=== PATIENT | male | born 1995 | race Caucasian/White ===

== ENCOUNTER 2023-07-11 21:22 | Emergency (ER) | payer OTHER, SELFPAY ==
[2023-07-11 21:32] VITALS: BP 140/87; PULSE 95; RESP 18; TEMP 36.9; O2SAT 98; BMI 34.0
--- NOTE | 2023-07-11 22:07 | W.ED.EYEPROB ---
HPI - Eye Problem General: Chief complaint: Eye Problems Stated complaint: red painful eye Time Seen by Provider: 07/11/23 22:04 History of Present Illness: Is a healthy 28-year-old male who presents to the emergency room with left eye pain. He says he was around a cat and he is allergic and he had very itchy eyes. He had been scratching his eyes and they turned red and he thought he saw foreign body in tried to get it out and now he has a white spot over his pupil. On exam initially this looks like a corneal abrasion rather than a foreign body. No vision changes. No pain with eye movement. Review of Systems Narrative: Constitutional symptoms: Negative except as documented in HPI. Skin symptoms: Negative except as documented in HPI. Eye symptoms: Negative except as documented in HPI. ENMT symptoms: Negative except as documented in HPI. Respiratory symptoms: Negative except as documented in HPI. Cardiovascular symptoms: Negative except as documented in HPI. Gastrointestinal symptoms: Negative except as documented in HPI. Genitourinary symptoms: Negative except as documented in HPI. Musculoskeletal symptoms: Negative except as documented in HPI. Neurologic symptoms: Negative except as documented in HPI. Psychiatric symptoms: Negative except as documented in HPI. Endocrine symptoms: Negative except as documented in HPI. Physical Exam Narrative: EXAM NARRATIVE: General: Alert, no acute distress. Skin: warm and dry Head: Normocephalic Neck: Trachea midline Eye: Extraocular movements are intact. Vision grossly normal. He has some scleral injection. What appears to be a corneal abrasion just on regular exam over his iris. Ears, nose, mouth and throat: Oral mucosa moist Respiratory: Respirations are non-labored Musculoskeletal: Normal ROM Neurological: Alert and oriented, No focal neurological deficit observed. Psychiatric: Cooperative, appropriate mood & affect. Course Vital Signs: Vital signs: Vital Signs Temperature 98.4 F 07/11/23 21:32 Pulse Rate 95 07/11/23 21:32 Respiratory Rate 18 07/11/23 21:32 Blood Pressure 140/87 07/11/23 21:32 Pulse Oximetry 98 07/11/23 21:32 Oxygen Delivery Me thod Room Air 07/11/23 21:32 MDM - Eye Problem Medical Decision Making Slit lamp examination of eye. tetracaine applied to the affected eye. once significant analgesia occurred fluorescein dye was applied to the eye Examination under our local eye revealed a corneal abrasion over the medial side of the iris. Doubt this with a 4 x 4 and it is definitely not a foreign body but an abrasion.. I was then irrigated copiously with saline. Polytrim applied to the eye here and a prescription was given Assessment and plan: Corneal abrasion -First dose [place] and first dose of his eyedrops here. - Discharged home - Discussed plan with patient. Answered any questions. - Evaluation and treatment of this problem were appropriate in the emergency setting. No radiology studies performed this visit Discharge Plan Discharge Patient Disposition: Home Clinical Impression: Corneal abrasion Condition: Stable Prescriptions: New hydrocodone-acetaminophen 5-325 mg tablet 1 tab PO Q6H PRN (Reason: pain) Qty: 20 0RF [id number]-IX 3.5-10,000-1 mg/mL-unit/mL-% drops,suspension 4 drp otic (ear) Q6H 10 Days Qty: 10 0RF Discharge Orders: Discharge ED (Routine); Ordered 07/11/23 Ordered By: Louisa Fonseca Discharge Diet: Usual diet Discharge Activity: Increase activity as tolerated Patient Instructions: Corneal Abrasion (ED), Opioid Safety Activity Restrictions/Additional Instructions: Thank you for choosing [facility] for your healthcare needs today. Please realize this is an emergency room and that we are providing you with a medical screening exam and this may not be complete and all inclusive of all the testing and or work up that you may need to determine your ailment or severity of your illness. You have been screened and evaluated and felt safe for discharge. Health conditions do change or evolve sometimes and as such it is important that you follow up with your Primary Doctor to be re checked, 3-5 days is a general good time frame for follow up. You are always welcome to return to the ED for re assessment if your symptoms are worsening or you have new concerns Coding Level of Care Code ED Graduate Teaching Assistant for Adarsh Valentine
[2023-07-11] MEDS: tetracaine 0.5% Op Soln 4 mL Btl 1 DROP EYE-RIGHT (22:10)
[2023-07-11] MEDS: fluorescein 1 mg Strip EYE-RIGHT (22:10)
[2023-07-11] MEDS: HYDROcodone-acetaminophen 10-325 mg Tablet 1 TAB PO (22:38)
[2023-07-11] MEDS: erythromycin Op Oint 1 gm 1 APPLIC EYE-LEFT (22:39)
--- NOTE | 2023-07-11 22:53 | PC.NURSE ---
EDI 10/325MG SENT HOME WITH PT PER DR. MOORE VERBALLY ORDER TO SEND HOME.
== END 2023-07-11 22:54 | disposition home or self-care (01) ==
PROVIDERS: Emergency Provider Emergency Medicine
DX: S05.02XA Injury of conjunctiva and corneal abrasion without foreign body, left eye, initial encounter (principal); X58.XXXA Exposure to other specified factors, initial encounter
CPT/HCPCS: 99283

== ENCOUNTER 2024-07-19 08:12 | Outpatient (CLI) | payer OTHER, SELFPAY ==
--- NOTE | 2024-07-19 08:16 | USR_ITS ---
PROCEDURE INFORMATION: Exam: US Abdomen; Limited Exam date and time: 07/19/2024 8:30 AM Age: 29 years old Clinical indication: Abnormal findings; Abnormal lab test; Elevated liver enzymes TECHNIQUE: Imaging protocol: Real time ultrasound of the abdomen with image documentation. Limited exam focused on the region of clinical interest. COMPARISON: No relevant prior studies available. FINDINGS: Liver: The liver measures 19.4 cm in the midclavicular plane. The liver demonstrates increased echogenicity with decreased visualization of periportal fat with mild sound attenuation. No mass. Gallbladder: The gallbladder wall measures 2 mm. No gallstones. Biliary ducts: The common bile duct measures 5 mm. No ductal calculi as visualized. Pancreas: The pancreas neck and proximal body are unremarkable. The remainder of the gland is obscured by bowel gas. Right kidney: The right kidney measures 11.8 x 5.4 x 5.7 cm. The renal cortex measures 1.1 cm. Unremarkable. A brief color Doppler examination of the right kidney was performed showing normal color shifts. Aorta: The proximal abdominal aorta measures 1.8 cm. Inferior vena cava: The upper abdominal IVC appears unremarkable. Portal venous: The main portal vein measures 9 mm. A brief color and pulsed Doppler examination of the portal vein was performed showing normal hepatopedal flow. 14.8 cm/sec. US/US abdomen limited 38733 IMPRESSION: 1. Limitations as above. 2. Mild hepatomegaly. 3. Fatty infiltration of the liver.
== END 2024-07-19 08:13 | disposition home or self-care (01) ==
LOC: RAD 08:14
PROVIDERS: PCP Family Medicine; Visit Provider Family Medicine
DX: R74.01 Elevation of levels of liver transaminase levels (principal); R16.0 Hepatomegaly, not elsewhere classified
CPT/HCPCS: 76705